=== PATIENT | female | born 1955 | race Caucasian/White ===

== ENCOUNTER 2020-08-20 11:37 | Inpatient (IN) | payer BC ==
[~2020-08-20] VITALS: Ht 162.6 cm; Wt 73.1 kg
[2020-08-20] MEDS ORDERED: HYDROcodone-ACET 5/325MG TAB PO ONE (12:15)
[2020-08-20] MEDS ORDERED: MIDAZOLAM HCL 5 MG/ML-1ML VIAL IV ONE (15:30)
[2020-08-20] MEDS ORDERED: cefTRIAXone 1GM/50ML D5W 50 ML IV ONE (15:30)
[2020-08-20] MEDS ORDERED: fentaNYL CITRATE 100 MCG/2 ML VL IV ONE (15:30)
[2020-08-20 16:56] LABS: Basophils # (auto) 0 10 ^3/uL (0-0.2); Basophils % (auto) 0.2 % (0.0-2.0); Eosinophils # (auto) 0 10 ^3/uL (0-0.8); Eosinophils % (auto) 0.4 % (0.0-7.0); Hematocrit 39.3 % (36.0-46.0); Hemoglobin 13.3 g/dL (12.2-16.2); Lymphocytes # (auto) 1.4 10 ^3/uL (0.4-5.4); Lymphocytes % (auto) 19.1 % (10.0-50.0); Mean Corpuscular Hemoglobin 31.1 pg (28.0-32.0); Mean Corpuscular Hgb Conc. 33.9 g/dL (32.0-36.0); Mean Corpuscular Volume 91.7 fL (80.0-100.0); Monocytes # (auto) 0.5 10 ^3/uL (0-1.3); Monocytes % (auto) 7.1 % (0.0-12.0); Neutrophils # (auto) 5.2 10 ^3/uL (1.6-8.6); Neutrophils % (auto) 73.2 % (37.0-80.0); Nucleated Red Blood Cells % 0.1 %; Platelet Count (auto) 309 10^3/uL (140-450); Red Blood Cells 4.29 10^6/uL (4.0-5.20); Red Cell Distribution Width 13.2 % (11.8-14.3); White Blood Cell 7.1 10^3/uL (4.4-10.8)
[2020-08-20 17:12] LABS: INR 0.96 (0.9-1.15); Partial Thromboplastin Time 25.6 sec (23.0-31.2)
[2020-08-20] MEDS ORDERED: NITROGLYCERIN 0.4 MG SL TAB SL PRN (17:15)
[2020-08-20] MEDS ORDERED: ONDANSETRON HCL 4 MG/2 ML VIAL IV PRN (17:15)
[2020-08-20] MEDS ORDERED: MORPHINE SULF INJ 2 MG/ML SYRINGE 1ML IV PRN ×2 (17:15)
[2020-08-20 17:16] LABS: Albumin 3.6 g/dL (3.4-5.0); Calcium 8.8 mg/dL (8.5-10.1); Potassium 3.8 mmol/L (3.5-5.1)
[2020-08-20 17:20] LABS: BUN/Creatinine Ratio 24.3; Bilirubin, Total 0.4 mg/dL (0.2-1.0); Total Protein 8.3 g/dL (6.4-8.2)
[2020-08-20 17:27] LABS: Urine Bacteria NONE SEEN /hpf (None Seen); Urine Blood Negative /uL (Negative); Urine Hyaline Cast FEW /lpf (0 - 2); Urine Mucus FEW (None Seen); Urine Specific Gravity 1.031 (1.001-1.035); Urine WBC 2 /hpf (0 - 5)
[2020-08-20] MEDS ORDERED: SODIUM CHLORIDE 0.9% 1,000 ML IV ONE (17:45)
[2020-08-20] MEDS ORDERED: FLUMAZENIL 0.1 MG/ML INJ 10ML MDV IV ONE ×2 (18:06→18:30)
[2020-08-20] MEDS: ceFAZolin 1GM/50ML 50 ML IV SCH (22:42)
[2020-08-21] VITALS (10 sets, daily range): BP systolic 124–178; BP diastolic 70–107
[2020-08-21] MEDS: HYDROcodone-ACET 5/325MG TAB PO PRN ×2 (00:58→06:16)
[2020-08-21] MEDS: ceFAZolin 1GM/50ML 50 ML IV SCH ×3 (06:17→22:24)
[2020-08-21] MEDS ORDERED: ACETAMINOPHEN 325 MG TAB PO PRN (07:15)
[2020-08-21] MEDS ORDERED: PROMETHAZINE HCL 25 MG/ML 1ML IV ONE (07:15)
[2020-08-21] MEDS: SUMAtriptan SUCCINATE 25 MG TAB PO PRN (10:42)
[2020-08-21] MEDS ORDERED: KETOROLAC TROMETH 30 MG/ML 1ML VIAL IV PRN (11:00)
[2020-08-21] MEDS ORDERED: D5W/SOD CHL 0.45%/KCL 20MEQ 1,000 ML IV SCH (11:00)
[2020-08-21] MEDS ORDERED: ceFAZolin 1GM/50ML 50 ML IV ONE ×3 (15:18→15:52)
[2020-08-21] MEDS ORDERED: fentaNYL CITRATE 100 MCG/2 ML VL ONE (15:26)
[2020-08-21] MEDS ORDERED: MORPHINE SULF(PF) 0.5MG/ML 10ML VIAL ONE (15:26)
[2020-08-21] MEDS ORDERED: PROPOFOL 10 MG/ML 20 ML IV ONE (15:27)
[2020-08-21] MEDS ORDERED: KETAMINE HCL 10 ML ONE (15:27)
[2020-08-21] MEDS ORDERED: ePHEDrine SULFATE 50 MG/ML AMP ONE (15:27)
[2020-08-21] MEDS ORDERED: MIDAZOLAM HCL 1MG/1ML-2 ML VIAL ONE ×2 (15:27→16:33)
[2020-08-21] MEDS ORDERED: GLYCOPYRROLATE 0.2 MG/ML 1ML VIAL ONE (15:27)
[2020-08-21] MEDS ORDERED: TETRACAINE 1% INJ 2 ML VIAL IJ ONE (16:02)
[2020-08-21] MEDS ORDERED: BUPIVACAINE 0.25% INJ 50ML VIAL ONE (16:07)
[2020-08-21] MEDS ORDERED: MEPERIDINE HCL (25 MG/ML) 1ML VIAL ONE (16:47)
[2020-08-21] MEDS: LACTATED RINGER'S 1,000 ML IV SCH (17:45)
[2020-08-21] MEDS ORDERED: DexAMETHasone SOD PHOS 10MG/1ML VIAL INJ IV PRN (18:00)
[2020-08-21] MEDS ORDERED: fentaNYL CITRATE 100 MCG/2 ML VL IV PRN (18:00)
[2020-08-21] MEDS ORDERED: NALBUPHINE HCL 10 MG/1ml INJECTION SUBCUT ONE (18:00)
[2020-08-21] MEDS ORDERED: ONDANSETRON HCL 4 MG/2 ML VIAL IV PRN (18:00)
[2020-08-21] MEDS ORDERED: ACCU-CHEK COMFORT CURVE STRIP VI ONE (18:00)
[2020-08-21] MEDS ORDERED: NALOXONE HCL 0.4 MG/ML VIAL IV PRN (18:00)
[2020-08-21] MEDS ORDERED: diphenhdrAMINE HCL 50 MG/1 ML VL IV PRN (18:00)
[2020-08-21] MEDS ORDERED: fentaNYL CITRATE 100 MCG/2 ML VL IV ONE (19:04)
[2020-08-21] MEDS ORDERED: ONDANSETRON HCL 4 MG/2 ML VIAL IV ONE (19:37)
[2020-08-21] MEDS ORDERED: METOCLOPRAMIDE HCL 5MG/ml INJ 2ml VIAL ONE (20:24)
[2020-08-21] MEDS ORDERED: METOCLOPRAMIDE HCL 5MG/ml INJ 2ml VIAL IV ONE ×2 (20:27→20:30)
[2020-08-21] MEDS: SODIUM CHLOR 0.9% PF (SALINE LOCK) 10ML VIAL/SYR IV SCH (22:24)
[2020-08-22] VITALS (18 sets, daily range): BP systolic 129–148; BP diastolic 62–87
[2020-08-22] MEDS: ONDANSETRON HCL 4 MG/2 ML VIAL IV PRN ×2 (00:06→11:41)
[2020-08-22] MEDS: LACTATED RINGER'S 1,000 ML IV SCH ×3 (03:45→18:20)
[2020-08-22] MEDS: SODIUM CHLOR 0.9% PF (SALINE LOCK) 10ML VIAL/SYR IV SCH ×3 (06:00→20:52)
[2020-08-22 06:36] LABS: BUN/Creatinine Ratio 19.5; Calcium 7.8 mg/dL (8.5-10.1); Potassium 3.6 mmol/L (3.5-5.1)
[2020-08-22 06:54] LABS: Basophils # (auto) 0 10 ^3/uL (0-0.2); Basophils % (auto) 0.1 % (0.0-2.0); Eosinophils # (auto) 0 10 ^3/uL (0-0.8); Hematocrit 33.4 % (36.0-46.0); Hemoglobin 11.5 g/dL (12.2-16.2); Lymphocytes # (auto) 0.7 10 ^3/uL (0.4-5.4); Lymphocytes % (auto) 7.5 % (10.0-50.0); Mean Corpuscular Hemoglobin 31.3 pg (28.0-32.0); Mean Corpuscular Hgb Conc. 34.3 g/dL (32.0-36.0); Mean Corpuscular Volume 91.4 fL (80.0-100.0); Monocytes # (auto) 0.5 10 ^3/uL (0-1.3); Monocytes % (auto) 5.1 % (0.0-12.0); Neutrophils # (auto) 8.4 10 ^3/uL (1.6-8.6); Neutrophils % (auto) 87.3 % (37.0-80.0); Platelet Count (auto) 249 10^3/uL (140-450); Red Blood Cells 3.65 10^6/uL (4.0-5.20); Red Cell Distribution Width 12.8 % (11.8-14.3); White Blood Cell 9.6 10^3/uL (4.4-10.8)
[2020-08-22] MEDS: ceFAZolin 1GM/50ML 50 ML IV SCH ×3 (07:12→20:58)
[2020-08-22] MEDS: SUMAtriptan SUCCINATE 25 MG TAB PO PRN (11:45)
[2020-08-23 05:20] VITALS: BP 143/84
[2020-08-23] MEDS: SODIUM CHLOR 0.9% PF (SALINE LOCK) 10ML VIAL/SYR IV SCH ×2 (05:41→14:40)
[2020-08-23] MEDS: ceFAZolin 1GM/50ML 50 ML IV SCH ×2 (06:00→14:40)
[2020-08-23 06:07] LABS: Basophils # (auto) 0 10 ^3/uL (0-0.2); Basophils % (auto) 0.2 % (0.0-2.0); Eosinophils # (auto) 0 10 ^3/uL (0-0.8); Eosinophils % (auto) 0.6 % (0.0-7.0); Hematocrit 34.2 % (36.0-46.0); Hemoglobin 11.9 g/dL (12.2-16.2); Lymphocytes # (auto) 1.4 10 ^3/uL (0.4-5.4); Lymphocytes % (auto) 17.1 % (10.0-50.0); Mean Corpuscular Hemoglobin 31.8 pg (28.0-32.0); Mean Corpuscular Hgb Conc. 34.8 g/dL (32.0-36.0); Mean Corpuscular Volume 91.2 fL (80.0-100.0); Monocytes # (auto) 0.6 10 ^3/uL (0-1.3); Monocytes % (auto) 7.7 % (0.0-12.0); Neutrophils # (auto) 5.9 10 ^3/uL (1.6-8.6); Neutrophils % (auto) 74.4 % (37.0-80.0); Nucleated Red Blood Cells % 0.1 %; Platelet Count (auto) 256 10^3/uL (140-450); Red Blood Cells 3.75 10^6/uL (4.0-5.20); White Blood Cell 7.9 10^3/uL (4.4-10.8)
[2020-08-23] MEDS: SUMAtriptan SUCCINATE 25 MG TAB PO PRN (06:48)
[2020-08-23 09:00] VITALS: BP 121/70
[2020-08-23] MEDS: LACTATED RINGER'S 1,000 ML IV SCH (09:45)
[2020-08-23] MEDS: CEPHALEXIN 250 MG CAP PO SCH ×2 (12:37→17:22)
[2020-08-23 13:00] VITALS: BP 134/67
[2020-08-23 16:49] VITALS: BP_SYST 102; BP_SYST 143; BP_DIAS 63; BP_DIAS 72
[2020-08-23] MEDS: ONDANSETRON HCL 4 MG/2 ML VIAL IV PRN (17:22)
[2020-08-23] MEDS: HYDROcodone-ACET 5/325MG TAB PO PRN (18:30)
== END 2020-08-23 20:00 | disposition home or self-care (01) | DRG 494 ==
LOC: ER 11:37 → OVERFLOW 11:38 → CENTRAL 08-21 03:30
PROVIDERS: ADMIT Nurse Practitioner Acute Care; ATTEND Internal Medicine
PROC: 0QSH04Z Reposition Left Tibia with Internal Fixation Device, Open Approach (ICD-10-PCS; principal; 2020-08-21 16:15)
DX: S82.852A Displaced trimalleolar fracture of left lower leg, initial encounter for closed fracture (principal); G43.909 Migraine, unspecified, not intractable, without status migrainosus; W01.0XXA Fall on same level from slipping, tripping and stumbling without subsequent striking against object, initial encounter; Y93.01 Activity, walking, marching and hiking; Y92.015 Private garage of single-family (private) house as the place of occurrence of the external cause; Y99.8 Other external cause status; Z20.822 Contact with and (suspected) exposure to COVID-19; Z83.3 Family history of diabetes mellitus; Z82.49 Family history of ischemic heart disease and other diseases of the circulatory system
CPT/HCPCS: 36415; 71045; 73600; 73610; 76000; 80048; 80053; 81001; 85025; 85610; 85730; 86850; 86900; 86901; 87426; 93005; 93306; 94002; 96361; 96365; G0378; J0690; J0696; J1885; J2250; J2405; J2704; J3490

== ENCOUNTER 2022-07-23 12:49 | Emergency (ER) | payer BC ==
[~2022-07-23] VITALS: Ht 160 cm; Wt 73.2 kg
[2022-07-23] MEDS ORDERED: HYDROcodone-ACET 5/325MG TAB PO ONE (14:00)
[2022-07-23] MEDS ORDERED: KETAMINE 50mg/ML 10ml Vial (500mg/10ml) IV ONE (15:30)
[2022-07-23] MEDS ORDERED: PROPOFOL 10 MG/ML 20 ML IV ONE (15:30)
[2022-07-23] MEDS ORDERED: HYDR1TAB97 PO (19:04)
[2022-07-23 19:45] VITALS: BP 108/74
== END 2022-07-23 20:04 | disposition home or self-care (01) ==
LOC: ER 12:49
DX: S62.012A Displaced fracture of distal pole of navicular [scaphoid] bone of left wrist, initial encounter for closed fracture (principal); I97.89 Other postprocedural complications and disorders of the circulatory system, not elsewhere classified; W01.0XXA Fall on same level from slipping, tripping and stumbling without subsequent striking against object, initial encounter; Y93.89 Activity, other specified; Y92.89 Other specified places as the place of occurrence of the external cause; Y99.8 Other external cause status
CPT/HCPCS: 25605; 73110; 99152; 99285; J2704